=== PATIENT | male | born 2005 | race Caucasian/White ===

== ENCOUNTER 2024-03-12 01:30 | Emergency (ER) | payer BC, SELFPAY ==
[2024-03-12 01:32] VITALS: BP 140/74
[2024-03-12 02:00] VITALS: BP 188/83
--- NOTE | 2024-03-12 03:11 | EDRN ---
Pt. was brought back to ED Rm. 34, this RN witnessed pt. ambulate w/ steady gait. While this RN was in another pt's room, assisting RN went to pt's bedside as pt.'s father was agitated, asking assisting RN 'why were we brought back from the waiting
room into this corner if a doctor isn't seeing him?'. Assisting RN explained to father and pt. that rm. 34 was only room available, and more safe and private environment for physician evaluation. Pt. awaits provider evaluation. Assisting RN provided
pt. w/ cold wet towel to assist w/ sunburn complaint.
[2024-03-12 04:00] VITALS: BP 118/83
--- NOTE | 2024-03-12 04:00 | EDRN ---
Pt. and father moved to ED rm. 36 for comfort. Pt. reports last took 50 mg oral benadryl at 00:00, and last dose of advil/tylenol was 10 pm last night.
--- NOTE | 2024-03-12 04:11 | ED.GENMED ---
History of Present Illness
<VIVEK Mccarty - Last Filed: 03/12/24 04:22>
General
Chief Complaint: Skin Problem
Source: patient
Time Seen by Provider: 03/12/24 03:57
History of Present Illness
History of Present Illness:
Patient it a 18 y/o male with no significant medical history presenting for evaluation of sunburn. Patient states on Tuesday he was at the beach for 5-6 hours and got sunburn on his chest, abdomen, and upper arms. He states yesterday around 4pm he
began to get episodes of severe itching and burning of the sunburned areas. He states he has tried cortisone cream, benedryl, tylenol, and motrin with no relief. He states this happened to him a couple years ago and was treated in the ED with
Benadryl and steroid with alleviated his symptoms. He denies any fevers, headaches, shortness of breath. He states he has been urinating appropriately.
Past History
<VIVEK Mccarty - Last Filed: 03/12/24 04:22>
Social History
Tobacco: Non-smoker
Alcohol: None
Drug: None
Phy Exam
<VIVEK Mccarty - Last Filed: 03/12/24 04:22>
Physical Exam
Physical Exam:
GENERAL: Alert , in no apparent distress
EYE: pupils equal and reactive
Throat: Airway intact, no exudates
NECK: Supple, no significant adenopathy.
CARDIAC: Regular rate and rhythm .
LUNGS: Clear breath sounds bilaterally, no acute respiratory distress, no wheezes/rales/rhonchi
ABDOMEN: Soft, nondistended, nontender, no cvat
NEUROLOGICAL: Alert and oriented, no focal neuro deficits
SKIN: Erythematous, blanchable superficial nicolas to the chest, abdomen, upper arms that are painful to pressure. No blistered or sloughing of skin.
MUSCULOSKELETAL: No edema, well perfused.
PSYCH: Normal and appropriate interaction.
Course
<VIVEK Mccarty - Last Filed: 03/12/24 04:22>
Orders/Labs/Results
Orders:
Orders
03/12/24 04:44
HydrOXYZINE [Atarax] 50 mg .ROUTE .STK-MED ONE
Prednisone [Deltasone] 50 mg .ROUTE .STK-MED ONE
Vital Signs
Initial and Last Documented VS:
Initial Vital Signs
Temp Pulse Resp BP Pulse Ox
97.4 F 50 26 140/74 100
03/12/24 01:32 03/12/24 01:32 03/12/24 01:32 03/12/24 01:32 03/12/24 01:32
Last Documented Vital Signs
Temp Pulse Resp BP Pulse Ox
97.4 F 50 26 140/74 100
03/12/24 01:32 03/12/24 01:32 03/12/24 01:32 03/12/24 01:32 03/12/24 01:32
<Dawn Diane DO - Last Filed: 03/12/24 04:55>
Orders/Labs/Results
Orders:
Orders
03/12/24 04:44
HydrOXYZINE [Atarax] 50 mg .ROUTE .STK-MED ONE
Prednisone [Deltasone] 50 mg .ROUTE .STK-MED ONE
Vital Signs
Initial and Last Documented VS:
Initial Vital Signs
Temp Pulse Resp BP Pulse Ox
97.4 F 50 26 140/74 100
03/12/24 01:32 03/12/24 01:32 03/12/24 01:32 03/12/24 01:32 03/12/24 01:32
Last Documented Vital Signs
Temp Pulse Resp BP Pulse Ox
97.4 F 50 26 140/74 100
03/12/24 01:32 03/12/24 01:32 03/12/24 01:32 03/12/24 01:32 03/12/24 01:32
<VIVEK Mccarty - Last Filed: 03/12/24 04:22>
MDM/Problems Addressed
Differential Diagnosis Includes:
Differential diagnosis includes but is not limited to superficial nicolas, dehydration.
<VIVEK Mccarty - Last Filed: 03/12/24 04:22>
*Pulse Oximetry
Patient hypoxic: no
*EKG
Interpreted by ED Provider?: NA
*Application Technical Designer Interpretation
Rate: Application Technical Designer- N/A
*Critical Care Note
Total Time (30-74mins, 75-104mins- exclusive of procedures): Not Applicable
ED Attending Note
<VIVEK Mccarty - Last Filed: 03/12/24 04:22>
-
Portions of this chart may have been created with voice recognition software.� Occasional wrong word or��sound alike� substitutions may have occurred due to the inherent limitations of voice recognition software.
<Dawn Diane DO - Last Filed: 03/12/24 04:55>
ED Attending Note
Patient seen and examined by attending physician: Yes
I performed the substantive portion of visit, reviewed & personally made and approve the management plan that is documented in note by myself or CHERISE.: Yes
ED Attending Note:
This is a 18-year-old male who presents with sunburn after admits to lying on the beach, fell asleep on the beach on Tuesday, 3 days ago, without wearing sunblock. He presents with moderate somber/erythema to anterior trunk, anterior arms without
vesicle formation. He complains of significant itching to his trunk, worse throughout the night and thus far without relief despite taking Benadryl and applying hydrocortisone cream.
He has not had a fever nor chills, no nausea or vomiting. Appetite has been good.
He admits to feeling improved since arrival to the ED.
GENERAL: 18-year-old overweight male sleeping upon initially entering exam room, easily awakens. Father is accompanying. He is afebrile.
EYE: anicteric
NECK: Supple, nontender, no meningismus, no significant adenopathy.
ENT: oral mucosa is moist. No rhinorrhea.
CARDIAC: Regular rate and rhythm. no murmur.
LUNGS: Clear breath sounds bilaterally, no acute respiratory distress, no wheezes/rales/rhonchi
ABDOMEN: Soft, nondistended, without focal tenderness
NEUROLOGICAL: Alert and oriented x3, no focal neuro deficits. Gait is lyman and steady.
SKIN: Warm and dry, normal color. There is moderate erythematous sunburn to the anterior trunk, anterior bilateral arms without vesicle formation. There is no soft tissue swelling. There is no sloughing.
MUSCULOSKELETAL: No C/C/E. peripheral pulses are full and equal b/l. No palpable tenderness.
PSYCH: Normal and appropriate interaction.
Patient presents with first-degree sunburn, complains of significant itching but overall appears quite comfortable. Admits to feeling improved since arrival to the ED.
Clinically appears euvolemic and has had no vomiting, no fever, nothing to suggest dehydration.
Will treat with a short course of prednisone for symptom relief as well as hydroxyzine for as needed itch.
Recommend aloe vera gel as well as moisturizer to sunburned skin, avoid any further sun exposure and once skin is healed discussed importance of SPF when outdoors at all times.
Follow-up with PCP as needed.
Discharge Plan
Departure
Patient Disposition: Home (Routine Discharge)
Date of Disposition: 03/12/24
Time of Disposition: 04:47
Patient with high blood pressure during this ER visit?: Yes
Condition: Good
Discharge Problem:
1st degree sunburn
Instructions: Play It Safe in the Sun, Sunburn (DC)
Prescriptions:
New
prednisone 50 mg Tablet
50 mg PO DAILY Qty: 5 0RF
hydroxyzine HCl 50 mg tablet
50 mg PO TID PRN (Reason: itching) Qty: 14 0RF
No Action
acetaminophen [Tylenol Arthritis] 650 MG tablet extended release
650 mg PO PRN PRN (Reason: pain)
tamsulosin 0.4 MG capsule
0.4 mg PO HS
oxybutynin chloride 5 MG tablet
5 mg PO BID
Toradol
10 mg PO Q12H
ascorbic acid (vitamin C) [Vitamin C] 500 MG tablet
1,000 mg PO BID Qty: 56 0RF
Rx Instructions:
Take 1,000 mg twice a day for 14 days
zinc sulfate 220 MG capsule
220 mg PO DAILY Qty: 14 0RF
Rx Instructions:
Take 220 mg daily for 14 days
cholecalciferol (vitamin D3) 1,000 UNITS tablet
2,000 units PO DAILY Qty: 28 0RF
Rx Instructions:
Take 2,000 units daily for 14 days
tamsulosin [Flomax] 0.4 MG capsule
0.4 mg PO DAILY Qty: 15 0RF
Referrals:
PRIVATE,PHYSICIAN [Family Provider] - As needed
Interventions
Interventions:
*Risk Screen - Suicide Last Done: 03/12/24 01:32
*General Assessment Last Done: 03/12/24 04:06
*Neglect/Abuse Screening Last Done: 03/12/24 01:32
ED- Fall Risk Assessment Last Done: 03/12/24 03:39
*ED COVID-19 Vaccine History Last Done: 03/12/24 04:06
ED-Skin Assessment Last Done: 03/12/24 04:06
Discharge Date and Time
Print Language: URDU
[2024-03-12] MEDS: ATARAX 50 MG PO (04:51)
[2024-03-12] MEDS: DELTASONE 50 MG PO (04:52)
== END 2024-03-12 05:06 | disposition home or self-care (01) ==
LOC: EMR 01:30
PROVIDERS: EMERGENCY PHYSICIAN Emergency Medicine
DX: L55.0 Sunburn of first degree (principal); L29.9 Pruritus, unspecified; X32.XXXA Exposure to sunlight, initial encounter; Y92.832 Beach as the place of occurrence of the external cause; R03.0 Elevated blood-pressure reading, without diagnosis of hypertension
CPT/HCPCS: 99283